=== PATIENT | male | born 1980 | race African-American/Black ===

== ENCOUNTER 2016-08-04 20:19 | Inpatient (IN) | payer OTHER ==
--- NOTE | ~2016-08-04 | PN ---
Unit #: [id number] #: [id number] Patient: DEAN HUMPHREYS [id number] [facility] [address] [place] [address] [id number] MR#: [id number] NAME: DEAN HUMPHREYS ROOM: [facility] Age: 35 Sex: M Admission Date: 08/04/2016 : 1980 Attending Physician: Shahzad Kevin M.D. Admitting Physician: Shahzad Kevin M.D. Primary Care Physician: Generic Doctor Not In System [facility] PROGRESS NOTES DATE 08/05/2016 DISCUSSION Dean Humphreys is a 35-year-old male, seen on 08/05/2016. The patient interviewed, chart reviewed, and obtained information from the nursing staff. The patient was compliant and cooperative. Mood sad and dysphoric, flat affect, guarded, withdrawn, isolative, still having agitation. REVIEW OF SYSTEMS Complete review of systems unremarkable. MENTAL STATUS EXAMINATION General appearance: Patient dressed casually. Attention span and concentration, fair. Oriented to place and person. Mood and affect, sad, dysphoric, flat. Speech, monotone. Thought process, concrete. The patient denied any thoughts of harming self or others but still passive SI, flat, sad, dysphoric, guarded, command hallucinations. Recent and remote memory, poor. Insight and judgment, poor. DIAGNOSES 1. Schizophrenia, paranoid type. 2. Mood disorder, NOS. ASSESSMENT/PLAN Advised to continue with the current medication, Zyprexa, with the plan to add haloperidol 2 mg twice daily. Will continue to monitor, if needed, consider further adjustment of medication, such as adding SSRI. Dictated by... Tomy Gonsalves/carleen TD: 08/06/2016 05:01 JOB #: [id number] Unit #: [id number] #: [id number] Patient: DEAN HUMPHREYS PROGRESS NOTES Page 1 of 1 X Shahzad Kevin MD PROGRESS NOTE
--- NOTE | ~2016-08-04 | HP ---
Unit #: [id number] #: [id number] Patient: DEAN HUMPHREYS [id number] [place] [address] [id number] MR#: [id number] NAME: DEAN HUMPHREYS ROOM: [facility] Age: 35 Sex: M Admission Date: 08/04/2016 : 1980 Attending Physician: Shahzad Kevin M.D. Admitting Physician: Shahzad Kevin M.D. Primary Care Physician: Generic Doctor Not In System HISTORY AND PHYSICAL HISTORY OF PRESENT ILLNESS The patient is a 35-year-old male admitted on 2 [facility] on 08/04/2016 for auditory and visual hallucinations. PAST MEDICAL HISTORY The patient denies. PAST SURGICAL HISTORY The patient denies. SOCIAL HISTORY He is employed. He lives with his and daughter. Denies alcohol, tobacco and drug use. FAMILY MEDICAL HISTORY Noncontributory. ALLERGIES Penicillin CURRENT MEDICATIONS The patient is not on any home medications. REVIEW OF SYSTEMS CONSTITUTIONAL: No fever or chills. HEENT: Denies any sore throat, ear pain or runny nose. CARDIOVASCULAR: Denies chest pain, irregular heart rhythm or palpitations. CHEST: Denies shortness of breath or cough. No hemoptysis. GASTROINTESTINAL: Denies nausea, vomiting, diarrhea or chronic constipation. ENDOCRINE: Denies history of increased thirst or urination. No recent significant weight loss or gain. GENITOURINARY: Denies dysuria, frequency, or hematuria. SKIN: Denies any rashes. HEMATOLOGIC: Denies history of increased bleeding or bruising. MUSCULOSKELETAL: Denies any hot, swollen joints. No generalized muscle pain. NEUROLOGIC: Denies problems with vision or speech. No frequent, severe headaches. No numbness, tingling or weakness in any extremities. Denies loss of bladder or bowel control. PHYSICAL EXAM GENERAL: He is awake, alert and oriented in no acute distress. Unit #: [id number] #: [id number] Patient: DEAN HUMPHREYS VITAL SIGNS: Temperature 97.8, heart rate 60, respiration 16, blood pressure 103/68. HEIGHT: 5'6". WEIGHT: 225 pounds. SKIN: Warm and dry without rash or lesion. HEENT: Normocephalic. TMs not viewed. Oral and nasal passages clear. Conjunctivae clear. PERRLA. EOMs intact. NECK: Supple without lymphadenopathy or thyromegaly. HEART: Regular rate and rhythm without murmur. LUNGS: Clear. ABDOMEN: Soft, nontender. : Not done. EXTREMITIES: No evidence of cyanosis, clubbing or edema. Moves all without focal deficit. NEUROLOGICAL: Grossly within normal limits. Cranial Nerves: II: Visual alatorre are intact. III, IV AND : Extraocular movements are intact. Pupils are equal, round and reactive to light. V: Facial sensation is grossly normal. VII: Facial movements and expression are normal. VIII: Auditory acuity grossly intact. IX, X: Uvula is midline. Phonation is normal. XI: Patient shrugs shoulders and turns head normally. XII: Tongue protrudes in the midline. Sensory and Motor Function: Sensory and motor sensation is grossly normal. Motor: moves all extremities well. IMPRESSION Psychiatric admission. RECOMMENDATIONS Psychiatric per psychiatrist. MEDICAL: No contraindication to participate in facility activities. MEDICAL PROGNOSIS Good. MEDICAL CONDITION Stable. Dictated by... Lala Jenkins/candie TD: 08/05/2016 21:19 JOB #: [id number] Unit #: [id number] #: [id number] Patient: DEAN HUMPHREYS HISTORY AND PHYSICAL Page 1 of 1 X NAT ALBARADO APRN X HISTORY AND PHYSICAL
--- NOTE | ~2016-08-04 | DS ---
Unit #: [id number] #: [id number] Patient: DEAN HUMPHREYS [id number] [facility] [address] [place] [address] [id number] I MR#: [id number] NAME: DEAN HUMPHREYS ROOM: [facility] Age: 35 Sex: M Admission Date: 08/04/2016 : 1980 Discharge Date: 08/06/2016 Attending Physician: Shahzad Kevin M.D. Primary Care Physician: Generic Doctor Not In System DISCHARGE SUMMARY DIAGNOSTIS STUDIES LABORATORY RESULTS: Unremarkable. HOSPITAL COURSE The patient was admitted to inpatient unit on 08/04/2016 and discharged on 08/06/2016. The patient was treated on the inpatient unit with group therapy, individual therapy, and medication management. The patient responded well with the above modalities of treatment. Subsequently, the patient was discharged with a plan to follow up in outpatient program. DISCHARGE MEDICATIONS Desyrel 75 mg at bedtime for sleep, Zyprexa 20 mg at bedtime for psychosis, and Haldol 2 mg b.i.d. for psychosis. The patient needed 2 antipsychotics as the patient did not do well with 1 antipsychotic. The patient was tried on Haldol, Zyprexa, and Risperdal in the past. Recommending to taper off Haldol over the next 6 months once the patient is stable. The patient is not a candidate for Clozaril at this time. DISCHARGE DIAGNOSES Psychiatric: 1. Psychosis, not otherwise specified, F29.0. 2. Rule out schizophrenia, chronic paranoid type. 3. Rule out bipolar mood disorder, not otherwise specified. Secondary diagnosis: Deferred. Medical diagnosis: None. Stressors: Psychosocial stressors. DISCHARGE INSTRUCTIONS The patient is to follow up in outpatient clinic as per older adult social work specialist. CONDITION ON DISCHARGE The patient was pleasant and cooperative. Denied any psychotic symptom or any suicidal ideation. PROGNOSIS Guarded. DIET AND ACTIVITY As tolerated. Unit #: [id number] #: [id number] Patient: DEAN HUMPHREYS Dictated by... Tomy Gonsalves/richard TD: 08/06/2016 15:58 JOB #: [id number] DISCHARGE SUMMARY Page 1 of 1 X Shahzad Kevin MD DISCHARGE SUMMARY
--- NOTE | ~2016-08-04 | PA ---
Unit #: [id number] #: [id number] Patient: DEAN HUMPHREYS [id number] [facility] [address] [place] [address] [id number] I MR#: [id number] NAME: DEAN HUMPHREYS ROOM: [facility] Age: 35 Sex: M Admission Date: 08/04/2016 : 1980 Date of Assessment: Attending Physician: Shahzad Kevin M.D. Admitting Physician: Shahzad Kevin M.D. PSYCHIATRIC ASSESSMENT DATE OF SERVICE 08/05/2016. INFORMANTS The patient reliability, fair informant and chart reliability, good. CHIEF COMPLAINT Auditory hallucination. HISTORY OF PRESENT ILLNESS Mr. Dean Humphreys is a 35-year-old male, seen on 08/04/2016, presented with the above-mentioned complaint. The patient reported hearing voices since 03/2016. 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 The patient also reported he heard voices at the beginning of 2015. The patient reported poor Dean. The patient also stated that the voices tell him to do stuff and wrong things while he is working on [employer]. The patient reported hearing voices from the radio; delusional and paranoid symptoms; depressive symptom; flat, sad, dysphoric mood. The patient reported that at times feeling paranoid that someone is following him home from work, watching his daughter in the shower, and watching him and his having sex. The patient reported history of schizophrenia in his mother. The patient denied any use of drugs or alcohol. Lives with his and three daughters. Needing inpatient admission at this time for psychiatric stabilization. PAST PSYCHIATRIC HISTORY Remarkable for history of outpatient services from Dr. Calero from [facility]; in 05/2016, tried Abilify and then stopped as it did not work. FAMILY HISTORY AND SOCIAL HISTORY The patient has a good support system from his family. The patient has a stable job. Reported history of mother and twin sister were schizophrenic and had problem with the alcohol. MEDICAL HISTORY Unremarkable for any chronic medical illness. MEDICATIONS None. ALLERGIES No known drug allergies. Unit #: [id number] #: [id number] Patient: DEAN HUMPHREYS SUBSTANCE ABUSE HISTORY History of alcohol abuse as mentioned above. The patient reported age of onset 19, no use recently. REVIEW OF SYSTEMS HEENT: Eyes, clear. Ears, nose, mouth, and throat; clear. CARDIOVASCULAR: Unremarkable. RESPIRATORY: Unremarkable. GI: Unremarkable. : Unremarkable. SKIN: Unremarkable. LYMPH NODE: Unremarkable. NEUROLOGIC: Unremarkable. ENDOCRINE: Unremarkable. HEMATOLOGIC: Unremarkable. ALLERGIC/IMMUNOLOGIC: Unremarkable. MUSCULOSKELETAL: Muscle strength and tone, no atrophy or abnormal movement. Gait normal. MENTAL STATUS EXAMINATION CONSTITUTIONAL: Measurement of vital signs; temperature 98.8, heart rate 58, respiratory rate 16, blood pressure 110/65, height 5 feet 6 inches, and weight 225 pounds. GENERAL APPEARANCE: The patient dressed casually. The patient did not show any facial deformity. MUSCULOSKELETAL: Please see above. PSYCHIATRIC EXAMINATION Description of speech; regular rate, normal volume, normal articulation, coherent, and monotone. Description of thought process, circumstantial. Description of association, guarded and paranoid. Description of abnormal psychotic thinking; the patient reported hearing voices, voices telling him to do things. Sad, depressed, withdrawn, flat mood, guarded, and paranoid. Description of the patient's judgment: Concerning everyday activity, poor. Social situation, poor. Concerning psychiatric condition, poor. Complete mental status examination; oriented in time, place, and person. Recent and remote memory, fair. Attention span and concentration, fair. Language, able to name object and repeat phrases. Fund of knowledge, aware of current event and passive vocabulary intact. Mood and affect, sad and dysphoric. Insight and judgment, fair to poor. ASSETS AND LIABILITIES Assets, the patient is articulate and able to take care of his ADL. Liability, history of depression and psychosis. ADMITTING DIAGNOSES Psychiatric: Schizophrenia, chronic paranoid type and rule out bipolar mood disorder, not otherwise specified. Secondary diagnosis: Deferred. Medical diagnosis: None. Stressors: Psychosocial stressors. PSYCHIATRIC PLAN AND TREATMENT GOAL AND DISCHARGE PLAN Unit #: [id number] #: [id number] Patient: DEAN HUMPHREYS 1. Advised to admit the patient on the inpatient unit. Provide safe, supportive, and structured environment. 2. Ordered labs; CBC, CMP, UA, UDS, T4, and TSH. 3. The patient to attend all the programing on the inpatient unit, group therapy, individual therapy, medication management, and special observation for psychosis. 4. Advised to start the patient on Zyprexa 10 mg b.i.d. If needed, consider further adjustment of medication. TREATMENT GOAL To attain euthymic mood, gain insight into his problem, and learn coping skills. DISCHARGE PLAN Plan to stabilize the patient and consider followup in outpatient program. ESTIMATED LENGTH OF STAY 5 days. Dictated by... Shahzad Kevin M.D. GRICEL/richard TD: 08/05/2016 15:51 JOB #: [id number] PSYCHIATRIC ASSESSMENT Page 1 of 1 X Shahzad Kevin MD X PSYCHIATRIC ASSESSMENT
[2016-08-05 11:21] LABS: URINE APPEARANCE CLEAR; URINE BILIRUBIN NEG (NEG); URINE BLOOD NEG (NEG); URINE COLOR YELLOW; URINE GLUCOSE NEG (NEG); URINE KETONE NEG (NEG); URINE LEUKOCYTE ESTERASE NEG (NEG); URINE NITRATE NEG (NEG); URINE PROTEIN NEG (NEG); URINE SPECIFIC GRAVITY 1.018 (1.003-1.035); URINE UROBILINOGEN 0.2 MG/DL (NEG)
[2016-08-05 11:52] LABS: AMPHETAMINE NEG (NEG); BARBITURATES NEG (NEG); BENZODIAZEPINES NEG (NEG); COCAINE NEG (NEG); MARIJUANA NEG (NEG); OPIATES NEG (NEG); TRICYCLIC ANTIDEPRESSANTS NEG (NEG); U METHADONE NEG (NEG)
[2016-08-05 12:06] LABS: BASOPHIL% 0.8 % (0-2.5); EOSINOPHIL# 0.2 X10e3 (0-0.7); EOSINOPHIL% 4.3 % (0.0-7.0); HEMATOCRIT 43.8 % (38.0-50.0); HEMOGLOBIN 14.2 gm/dL (13.0-16.0); LYMPHOCYTE% 43.2 % (17.0-45.0); MEAN CELL VOLUME 91.2 FL (83-96); MEAN CORPUSCULAR HEMOGLOBIN 29.6 PG (28-34); MEAN CORPUSCULAR HGB CONC 32.5 g/dL (30-36); MEAN PLATELET VOLUME 9.7 FL (6.5-11.5); MONOCYTE# 0.2 X10e3 (0-1.0); MONOCYTE% 4.5 % (3.0-12.0); NEUTROPHIL# 2.1 X10e3 (1.5-7.1); NEUTROPHIL% 47.2 % (40-75); PLATELET COUNT 191 X10e3 (140-420); WHITE BLOOD COUNT 4.5 X10e3 (4.0-10.5)
[2016-08-05 12:07] LABS: DIFF IND NO
[2016-08-05 12:43] LABS: ALBUMIN SERUM 4.3 g/dL (3.5-5.0); BILIRUBIN,TOTAL 1.2 mg/dL (0.2-2.0); BUN/CREATININE RATIO 8.18; CALCIUM SERUM 9.7 mg/dL (8.4-10.2); CREATININE SERUM 1.1 mg/dL (0.6-1.4); GLOM FILT RATE Estimated 99.6 mL/min (>60); PROTEIN TOTAL SERUM 6.9 g/dL (6.0-8.3)
[2016-08-05 12:52] LABS: THYROID STIMULATING HORMONE 1.58 uIU/ml (0.34-5.60)
[2016-08-05 12:59] LABS: FREE THYROXIN (T4) 0.77 ng/dL (0.58-1.64)
== END 2016-08-06 12:57 | DRG 885 ==
LOC: P2S 20:19
PROVIDERS: Psychiatry & Neurology Psychiatry
DX: F20.0 Paranoid schizophrenia (principal); F39 Unspecified mood [affective] disorder; F31.9 Bipolar disorder, unspecified; Z88.0 Allergy status to penicillin
CPT/HCPCS: 80053; 80307; 81003; 84439; 84443; 85025